=== PATIENT | male | born 1985 | race Caucasian/White ===

== ENCOUNTER 2021-07-06 15:29 | Emergency (ER) | payer OTHER, SELFPAY ==
--- NOTE | 2021-07-06 15:32 | ED.GENADULT ---
HPI - General Adult General Chief complaint: Unspecified Stated complaint: med refill Time Seen by Provider: 07/06/21 15:32 Source: patient and RN notes reviewed History of Present Illness HPI narrative: Patient is a 36-year-old male who presents the urgent care needing a medication refill of 10 mg lisinopril. Patient states that his home health pharmacy at his workplace closed earlier today and he has been out of his medication for 6 days. Currently denies of any headache, chest pain, blurry vision. No other acute complaints. No acute distress noted. Patient aware of the plan of care. Some parts of this dictation were generated by voice recognition software and may contain typographical and/or grammatical inaccuracies. Related Data Home Medications Medication Instructions Recorded Confirmed dextroamphetamine-amphetamine 30 mg PO DAILY 07/06/21 07/06/21 [Adderall XR] lisinopril 10 mg PO DAILY 07/06/21 07/06/21 Allergies Allergy/AdvReac Type Severity Reaction Status Date / Time No Known Allergies Allergy Verified 07/06/21 15:46 Review of Systems Review of Systems: CONSTITUTIONAL: Denies fever, chills, or sweats. EYES: Denies visual changes, redness, or discharge. ENT: Denies rhinorrhea, congestion, sore throat, or otalgia. CARDIOVASCULAR: Denies chest pain, palpitations, or edema. RESPIRATORY: Denies cough or dyspnea. GASTROINTESTINAL: Denies abdominal pain, nausea, vomiting, or diarrhea. GENITOURINARY: Denies dysuria or hematuria. SKIN: Denies rash or itching. MUSCULOSKELETAL: Denies back pain, joint pain, or myalgia. NEUROLOGIC: Denies headache, numbness, or weakness. All other systems reviewed are negative, except as documented in HPI. PMFSH Comments At the time of my signature, I reviewed and agree with the nursing past medical, surgical, social, and family history. There is no relevant family history pertinent to the patient complaint. Exam Narrative: GENERAL: This is a well-nourished, well-developed patient, in no apparent distress. HEAD: normocephalic, atraumatic. EYES: PERRL. Sclera clear/white. Vision is grossly intact. EARS: External ears normal NOSE: External nose normal with no obvious nasal discharge, nares without redness, no rhinorrhea. THROAT: Mucous membranes moist NECK: Neck supple CARDIOVASCULAR: Regular rate and rhythm without murmurs, gallops, or rubs. RESPIRATORY: Clear to auscultation. Breath sounds equal bilaterally. No wheezes, rales, or rhonchi. SKIN: warm, intact with no suspicious lesions or rash, good texture and turgor. NEURO: awake, alert, and oriented to person, place and time. There were no obvious focal neurologic abnormalities. EXTREMITIES: No clubbing, cyanosis, or edema. Course Vital Signs Vital signs: Vital Signs Temperature 98.6 F 07/06/21 15:39 Pulse Rate 94 07/06/21 15:39 Respiratory Rate 16 07/06/21 15:39 Blood Pressure 140/85 07/06/21 15:39 Pulse Oximetry 100 07/06/21 15:39 Temperature 98.6 F 07/06/21 15:39 Pulse Rate 94 07/06/21 15:39 Respiratory Rate 16 07/06/21 15:39 Blood Pressure 140/85 07/06/21 15:39 Pulse Oximetry 100 07/06/21 15:39 Reviewed Medical Decision Making MDM Narrative Medical decision making narrative: Advised the patient to take the medication as soon as he picks it up from the pharmacy. Take the medication as prescribed. You will need to obtain a further refills from your normal pharmacy. Follow-up with your PCP within 2 to 5 days or for worsening symptoms or failure to improve. Differential Diagnosis Differential Diagnosis: Hypertension, worried well Vital Signs Vital Signs: Vital Signs Temperature 98.6 F 07/06/21 15:39 Pulse Rate 94 07/06/21 15:39 Respiratory Rate 16 07/06/21 15:39 Blood Pressure 140/85 07/06/21 15:39 Pulse Oximetry 100 07/06/21 15:39 Temperature 98.6 F 07/06/21 15:39 Pulse Rate 94 07/06/21 15:39 Respiratory Rate 16 07/06/21 15:39 Blood Pressu
[2021-07-06 15:39] VITALS: BP 140/85; PULSE 94; RESP 16; TEMP 37; O2SAT 100
== END 2021-07-06 16:06 | disposition home or self-care (01) ==
PROVIDERS: Emergency Provider Nurse Practitioner Family
DX: Z76.0 Encounter for issue of repeat prescription (principal)
CPT/HCPCS: 99211; G0463